=== PATIENT | female | born 1955 | race Two or more races ===

== ENCOUNTER 2020-05-04 07:00 | Day surgery (SDC) | payer OTHER ==
[~2020-05-04 07:00] MED LIST: ALDACTONE25 MG PO
== END 2020-05-04 13:00 | disposition home or self-care (01) ==
LOC: CIR.AMB 07:00 → SURH 09:00 → EDSTATUS 09:00 → CIR.AMB 13:00 → O/R 16:50
PROVIDERS: ATTEND Surgery
DX: C73 Malignant neoplasm of thyroid gland (principal); Z20.828 Contact with and (suspected) exposure to other viral communicable diseases